=== PATIENT | male | born 1990 | race Caucasian/White ===

== ENCOUNTER 2023-12-08 10:10 | Emergency (ER) | payer SELFPAY ==
[2023-12-08] MEDS ORDERED: Ibuprofen 200 MG TAB ONE (10:45)
== END 2023-12-08 12:01 | disposition home or self-care (01) ==
LOC: NAV ERS 10:10
DX: B34.9 Viral infection, unspecified (principal); R10.9 Unspecified abdominal pain; F17.210 Nicotine dependence, cigarettes, uncomplicated
CPT/HCPCS: 87635; 87804; 99283